=== PATIENT | female | born 1970 | race Caucasian/White ===

== ENCOUNTER 2019-11-08 08:48 | Day surgery (SDC) | payer OTHER ==
[~2019-11-08] VITALS: Ht 172.7 cm; Wt 82.8 kg
[~2019-11-08 08:48] MED LIST: CHLO25B PO; HYDCHL12.5 PO; IBUP800 PO
--- NOTE | 2019-11-08 11:30 | NUR ---
11/08/19 2060 Layne Obregon RN UPDATED PT REGARDING THE DELAY IN HER CASE WHILE IN PRE-OP.
== END 2019-11-08 12:22 | disposition home or self-care (01) ==
LOC: ORSCSDS 08:48
PROVIDERS: Student in an Organized Health Care Education/Training Program
PROC: 0DBP8ZX Excision of Rectum, Via Natural or Artificial Opening Endoscopic, Diagnostic (ICD-10-PCS; principal; 2019-11-08 10:15)
PROC: 0DBM8ZX Excision of Descending Colon, Via Natural or Artificial Opening Endoscopic, Diagnostic (ICD-10-PCS; principal; 2019-11-08 10:15)
DX: K92.1 Melena (principal); D12.5 Benign neoplasm of sigmoid colon; K63.5 Polyp of colon; K64.8 Other hemorrhoids; K64.4 Residual hemorrhoidal skin tags; I10 Essential (primary) hypertension; E78.5 Hyperlipidemia, unspecified
CPT/HCPCS: 88305; J2704; J7120

== ENCOUNTER → 2020-10-13 | Outpatient (CLI) | payer OTHER ==
[2020-10-17 15:10] LABS: HPV 16 Negative (Negative); HPV 18 Negative (Negative); HPV OTHER HR TYPES Negative (Negative)
== END | disposition home or self-care (01) ==
LOC: LAB 14:13
PROVIDERS: Family Medicine
DX: Z01.419 Encounter for gynecological examination (general) (routine) without abnormal findings (principal)
CPT/HCPCS: 87624; G0145

== ENCOUNTER 2023-08-14 06:46 | Day surgery (SDC) | payer BC ==
[2023-08-12 11:44] LABS: BASOPHILS ABSOLUTE AUTO 0.03 K/mm3 (0.00-0.23); BASOPHILS PERCENT AUTO 1 % (0-2); EOSINOPHILS ABSOLUTE AUTO 0.08 K/mm3 (0.00-0.68); EOSINOPHILS PERCENT AUTO 2 % (0-6); Hematocrit 45.3 % (33.0-51.0); Hemoglobin 15.1 g/dL (11.5-16.0); IMMATURE GRAN ABSOLUTE AUTO 0.01 K/mm3 (0.00-0.10); IMMATURE GRAN PERCENT AUTO 0 % (0-1); LYMPHOCYTES ABSOLUTE AUTO 1.47 K/mm3 (0.84-5.20); LYMPHOCYTES PERCENT AUTO 35 % (21-46); MONOCYTES ABSOLUTE AUTO 0.28 K/mm3 (0.16-1.47); MONOCYTES PERCENT AUTO 7 % (4-13); Mean Corpuscular HGB 29.2 pg (26.0-34.0); Mean Corpuscular HGB Conc 33.3 g/dL (31.5-36.5); Mean Corpuscular Volume 88 fL (80-100); Mean Platelet Volume 11.6 fL (9.1-12.4); NEUTROPHILS ABSOLUTE AUTO 2.36 K/mm3 (1.96-9.15); NEUTROPHILS PERCENT AUTO 56 % (41-73); Platelet Count 231 K/mm3 (150-400); RDW Coefficient Variation 13.3 % (11.7-14.2); RDW Standard Deviation 42.4 fL (35.1-46.3); Red Blood Cell Count 5.17 M/mm3 (3.80-5.20); White Blood Cell Count 4.23 K/mm3 (4.00-11.30)
[2023-08-12 12:20] LABS: Bun/Creatinine Ratio 18.2 (12.0-20.0); Calcium, Blood 9.1 mg/dL (8.5-10.1); Creatinine, Blood 0.82 mg/dL (0.40-1.00); Potassium, Blood 3.7 mmol/L (3.5-5.5)
[2023-08-14] VITALS (26 sets, daily range): BP systolic 87–150; BP diastolic 64–94
[~2023-08-14] VITALS: Ht 167.6 cm; Wt 81.9 kg
--- NOTE | 2023-08-14 12:56 | NUR ---
PATIENT TO ROOM FROM PACU, CRACKERS GIVEN 2 PERCOCET GIVEN 4 SMALL INCISIONS ALL WNL, LUNGS CLEAR O2 OFF BIOX 98% SCANT VAGINAL BLEEDING
[2023-08-15 00:09] VITALS: BP 101/61
[2023-08-15 05:36] VITALS: BP 105/64
[2023-08-15 05:54] LABS: BASOPHILS ABSOLUTE AUTO 0.02 K/mm3 (0.00-0.23); BASOPHILS PERCENT AUTO 0 % (0-2); EOSINOPHILS ABSOLUTE AUTO 0.04 K/mm3 (0.00-0.68); EOSINOPHILS PERCENT AUTO 0 % (0-6); Hematocrit 38.9 % (33.0-51.0); Hemoglobin 13.1 g/dL (11.5-16.0); IMMATURE GRAN ABSOLUTE AUTO 0.03 K/mm3 (0.00-0.10); IMMATURE GRAN PERCENT AUTO 0 % (0-1); LYMPHOCYTES ABSOLUTE AUTO 1.67 K/mm3 (0.84-5.20); LYMPHOCYTES PERCENT AUTO 19 % (21-46); MONOCYTES PERCENT AUTO 7 % (4-13); Mean Corpuscular HGB 29.2 pg (26.0-34.0); Mean Corpuscular HGB Conc 33.7 g/dL (31.5-36.5); Mean Corpuscular Volume 87 fL (80-100); Mean Platelet Volume 11.3 fL (9.1-12.4); NEUTROPHILS ABSOLUTE AUTO 6.66 K/mm3 (1.96-9.15); NEUTROPHILS PERCENT AUTO 74 % (41-73); Platelet Count 185 K/mm3 (150-400); RDW Coefficient Variation 13.3 % (11.7-14.2); RDW Standard Deviation 41.9 fL (35.1-46.3); Red Blood Cell Count 4.49 M/mm3 (3.80-5.20); White Blood Cell Count 9.02 K/mm3 (4.00-11.30)
[2023-08-15 08:36] VITALS: BP 105/64
--- NOTE | 2023-08-15 10:33 | NUR ---
pt preparing to go home after lunch, reports will take a shower here before she goes home, pt reports has scripts at home already, rosemary and jazmyne
[2023-08-15] MEDS ORDERED: Percocet 5-3251 EACH PO (10:36)
[2023-08-15] MEDS ORDERED: ESTR2 PO (10:36)
[2023-08-15] MEDS ORDERED: IBUP800 PO (10:37)
[2023-08-15 12:55] VITALS: BP 125/83
--- NOTE | 2023-08-15 13:00 | NUR ---
dc home with dc instructions and , encouraged to call dr healy with questions day or night. if unable to reach to call hospital. script for estrace given for pt to fill. pt choose to ambulate out.
== END 2023-08-15 13:00 | disposition home or self-care (01) ==
LOC: ORSCMMR 06:46 → ORD 08:00 → ORSCMMR 08:00 → BC 12:34 → ORSCMMR 08-15 13:00
PROVIDERS: Obstetrics & Gynecology
PROC: 0UT7FZZ Resection of Bilateral Fallopian Tubes, Via Natural or Artificial Opening With Percutaneous Endoscopic Assistance (ICD-10-PCS; principal; 2023-08-14 08:00)
PROC: 0UT9FZZ Resection of Uterus, Via Natural or Artificial Opening With Percutaneous Endoscopic Assistance (ICD-10-PCS; principal; 2023-08-14 08:00)
PROC: 0UT2FZZ Resection of Bilateral Ovaries, Via Natural or Artificial Opening With Percutaneous Endoscopic Assistance (ICD-10-PCS; principal; 2023-08-14 08:00)
PROC: 0U5F4ZZ Destruction of Cul-de-sac, Percutaneous Endoscopic Approach (ICD-10-PCS; principal; 2023-08-14 08:00)
DX: N95.0 Postmenopausal bleeding (principal); N85.01 Benign endometrial hyperplasia; D25.9 Leiomyoma of uterus, unspecified; N80.03 Adenomyosis of the uterus; N80.329 Endometriosis of the posterior cul-de-sac, unspecified depth; Z79.899 Other long term (current) drug therapy
CPT/HCPCS: 36415; 80048; 85025; 86850; 86900; 86901; 88305; 88307; A9270; J0690; J1100; J1885; J2250; J2371; J2405; J2704; J3010; J7120

== ENCOUNTER → 2025-03-10 | Outpatient (CLI) | payer BC ==
[~2025-03-10] MED LIST changes: +ESTR2 PO; +HYDCHL25 PO; +LYLLANA; +Percocet 5-3251 EACH PO
[2025-03-10 16:25] LABS: BASOPHILS ABSOLUTE AUTO 0.03 K/mm3 (0.00-0.23); BASOPHILS PERCENT AUTO 1 % (0-2); EOSINOPHILS ABSOLUTE AUTO 0.06 K/mm3 (0.00-0.68); EOSINOPHILS PERCENT AUTO 1 % (0-6); Hematocrit 48.1 % (33.0-51.0); Hemoglobin 16.1 g/dL (11.5-16.0); IMMATURE GRAN ABSOLUTE AUTO 0.01 K/mm3 (0.00-0.10); IMMATURE GRAN PERCENT AUTO 0 % (0-1); LYMPHOCYTES ABSOLUTE AUTO 0.63 K/mm3 (0.84-5.20); LYMPHOCYTES PERCENT AUTO 12 % (21-46); MONOCYTES ABSOLUTE AUTO 0.58 K/mm3 (0.16-1.47); MONOCYTES PERCENT AUTO 11 % (4-13); Mean Corpuscular HGB 29.2 pg (26.0-34.0); Mean Corpuscular HGB Conc 33.5 g/dL (31.5-36.5); Mean Corpuscular Volume 87 fL (80-100); Mean Platelet Volume 10.7 fL (9.1-12.4); NEUTROPHILS ABSOLUTE AUTO 3.92 K/mm3 (1.96-9.15); NEUTROPHILS PERCENT AUTO 75 % (41-73); Platelet Count 180 K/mm3 (150-400); RDW Coefficient Variation 13.1 % (11.7-14.2); RDW Standard Deviation 41.2 fL (35.1-46.3); Red Blood Cell Count 5.52 M/mm3 (3.80-5.20); White Blood Cell Count 5.23 K/mm3 (4.00-11.30)
[2025-03-10 16:47] LABS: Albumin, Blood 3.8 g/dL (3.4-5.0); Albumin/Globulin Ratio 0.9 (0.8-1.8); Bilirubin, Total 0.7 mg/dL (0.1-1.0); Bun/Creatinine Ratio 10.5 (12.0-20.0); Calcium, Blood 9.4 mg/dL (8.5-10.1); Creatinine, Blood 0.86 mg/dL (0.40-1.00); Globulin, Blood 4.2 g/dL (2.2-4.0); Potassium, Blood 3.4 mmol/L (3.5-5.5)
== END ==
LOC: LAB SHORT 16:21 → LAB 16:21
DX: R10.9 Unspecified abdominal pain (principal)
CPT/HCPCS: 80053; 83690; 85025

== ENCOUNTER 2025-03-17 11:44 | Observation (INO) | payer BC, OTHER ==
[~2025-03-17] VITALS: Ht 170.2 cm; Wt 84.5 kg
[~2025-03-17 11:44] MED LIST changes: -LYLLANA; +LYLLANA TOP
[2025-03-17 12:51] LABS: BASOPHILS ABSOLUTE AUTO 0.04 K/mm3 (0.00-0.23); BASOPHILS PERCENT AUTO 1 % (0-2); EOSINOPHILS ABSOLUTE AUTO 0.06 K/mm3 (0.00-0.68); EOSINOPHILS PERCENT AUTO 1 % (0-6); Hematocrit 46.8 % (33.0-51.0); Hemoglobin 15.8 g/dL (11.5-16.0); IMMATURE GRAN ABSOLUTE AUTO 0.03 K/mm3 (0.00-0.10); IMMATURE GRAN PERCENT AUTO 0 % (0-1); LYMPHOCYTES ABSOLUTE AUTO 1.33 K/mm3 (0.84-5.20); LYMPHOCYTES PERCENT AUTO 16 % (21-46); MONOCYTES ABSOLUTE AUTO 0.57 K/mm3 (0.16-1.47); MONOCYTES PERCENT AUTO 7 % (4-13); Mean Corpuscular HGB 29.6 pg (26.0-34.0); Mean Corpuscular HGB Conc 33.8 g/dL (31.5-36.5); Mean Corpuscular Volume 88 fL (80-100); Mean Platelet Volume 11.1 fL (9.1-12.4); NEUTROPHILS ABSOLUTE AUTO 6.49 K/mm3 (1.96-9.15); NEUTROPHILS PERCENT AUTO 76 % (41-73); Platelet Count 193 K/mm3 (150-400); RDW Coefficient Variation 12.4 % (11.7-14.2); RDW Standard Deviation 40.1 fL (35.1-46.3); Red Blood Cell Count 5.33 M/mm3 (3.80-5.20); White Blood Cell Count 8.52 K/mm3 (4.00-11.30)
[2025-03-17 13:22] LABS: Albumin, Blood 3.6 g/dL (3.4-5.0); Bilirubin, Total 1.2 mg/dL (0.1-1.0); Bun/Creatinine Ratio 15.5 (12.0-20.0); Calcium, Blood 9.7 mg/dL (8.5-10.1); Creatinine, Blood 0.78 mg/dL (0.40-1.00); Globulin, Blood 3.7 g/dL (2.2-4.0); Potassium, Blood 3.6 mmol/L (3.5-5.5); Total Protein, Blood 7.3 g/dL (6.4-8.2)
[2025-03-17] MEDS ORDERED: Ketorolac Tromethamine 15mg Vial IV ONE (13:45)
[2025-03-17] MEDS ORDERED: MetroNIDAZOLE 500MG/NS 100 ml 100 ML IV ONE (14:45)
[2025-03-17] MEDS ORDERED: Lactated Ringer's 1,000 ML IV SCH ×2 (14:45→14:50)
[2025-03-17] MEDS ORDERED: Acetaminophen 325 MG TABLET PO PRN (14:50)
[2025-03-17] MEDS ORDERED: HYDROmorphone HCl/Pf 1MG SYR IV PRN (14:50)
[2025-03-17] MEDS ORDERED: Ondansetron HCl 2 MG / ML 2ML Vial IV PRN (14:50)
[2025-03-17] MEDS ORDERED: OxyCODONE HCL 5 MG TAB PO PRN (14:50)
[2025-03-17] MEDS ORDERED: Ketorolac Tromethamine 15mg Vial IV PRN (14:55)
[2025-03-17] MEDS ORDERED: METO100ER PO (16:26)
[2025-03-17 16:30] VITALS: BP 121/83
--- NOTE | 2025-03-17 16:41 | NUR ---
PATIENT ADMITTED TO ROOM 215, REPORT RECEIVED FROM KATHRYN STUDENT NURSE. PATIENT ORIENTED TO ROOM AND USE OF CALL LIGHT. REPORT GIVEN TO BONNIE CARLSON TO CONTINUE ADMISSION PROCESS.
[2025-03-17 20:15] VITALS: BP 128/79
[2025-03-17] MEDS ORDERED: Metoprolol Succinate 50 MG TABCR PO SCH (21:00)
[2025-03-18] VITALS (18 sets, daily range): BP systolic 85–170; BP diastolic 59–108
--- NOTE | 2025-03-18 04:50 | NUR ---
SHIFT SUMMARY CRISTINA WAS ALERT AND FULLY ORIENTED AND INDEPENDENT IN ROOM ON ASSESSMENT. PT PAIN WELL MANAGED, DENIES N/V AT THIS TIME. PT WAS HYPOTENSIVE WITH AM VITALS, WILL FOLLOW UP. NO ACUTE EVENTS TONIGHT OR OTHER NOTED CHANGES TO PT CONDITION. PT SCHEDULED TO HAVE IMAGING IN AM AND PROBABLE SURGERY.
[2025-03-18 05:24] LABS: Hematocrit 42.6 % (33.0-51.0); Hemoglobin 14.3 g/dL (11.5-16.0); Mean Corpuscular HGB 29.1 pg (26.0-34.0); Mean Corpuscular HGB Conc 33.6 g/dL (31.5-36.5); Mean Corpuscular Volume 87 fL (80-100); Mean Platelet Volume 11.5 fL (9.1-12.4); Platelet Count 197 K/mm3 (150-400); RDW Coefficient Variation 12.6 % (11.7-14.2); RDW Standard Deviation 39.8 fL (35.1-46.3); Red Blood Cell Count 4.92 M/mm3 (3.80-5.20); White Blood Cell Count 5.37 K/mm3 (4.00-11.30)
[2025-03-18 05:56] LABS: Albumin, Blood 3.2 g/dL (3.4-5.0); Bilirubin, Total 1.3 mg/dL (0.1-1.0); Bun/Creatinine Ratio 9.5 (12.0-20.0); Calcium, Blood 8.9 mg/dL (8.5-10.1); Creatinine, Blood 0.84 mg/dL (0.40-1.00); Globulin, Blood 3.2 g/dL (2.2-4.0); Potassium, Blood 3.7 mmol/L (3.5-5.5); Total Protein, Blood 6.4 g/dL (6.4-8.2)
[2025-03-18] MEDS ORDERED: HydroCHLOROthiazide 25 mg Tab PO SCH (09:00)
[2025-03-18] MEDS ORDERED: Lactated Ringer's 1,000 ML IV SCH (10:45)
[2025-03-18] MEDS ORDERED: Indocyanine Green 25 MG Vial IV ONE (10:45)
[2025-03-18] MEDS ORDERED: FentaNYL Citrate 50 MCG/ML 5 ML Injection ONE (11:30)
[2025-03-18] MEDS ORDERED: Ondansetron HCl 2 MG / ML 2ML Vial ONE (11:30)
[2025-03-18] MEDS ORDERED: Rocuronium Bromide 10 MG/ML 5ML Injection IV ONE (11:30)
[2025-03-18] MEDS ORDERED: propofoL 20 ML IV ONE (11:30)
[2025-03-18] MEDS ORDERED: Dexamethasone Sod Phos 10 MG/ML 1ML VIAL ONE (11:30)
[2025-03-18] MEDS ORDERED: Ketorolac Tromethamine 30mg Vial ONE (11:30)
--- NOTE | 2025-03-18 12:39 | NUR ---
PT TAKEN TO SURGERY. PT'S MOTHER AT BEDSIDE.
--- NOTE | 2025-03-18 13:23 | NUR ---
History, Chart, Medications and Allergies reviewed before start of procedure. Lungs clear T/O to Auscultation. Patient confirms NPO status and agrees with scheduled surgery. Pre-Op teaching done. Pt verbalizes understanding.
[2025-03-18] MEDS ORDERED: Bupivacaine 0.5% HCl 5 MG/ML 30MLVIAL ONE (13:33)
[2025-03-18] MEDS ORDERED: Bupivacaine 0.25% Epi 1:200000 30 ML Vial ONE (14:07)
[2025-03-18] MEDS ORDERED: Sugammadex Sodium 200 MG/2ML SDV (100 MG/ML) ONE (15:02)
[2025-03-18] MEDS ORDERED: Labetalol HCL 5 MG/ML 4ML Injection (Single Dose) IV PRN (15:25)
[2025-03-18] MEDS ORDERED: FentaNYL Citrate 50 MCG/ML 2 ML Injection IV PRN (15:30)
[2025-03-18] MEDS ORDERED: HydrALAZINE HCl 20 MG / ML 1ML Vial IV PRN (15:30)
[2025-03-18] MEDS ORDERED: Atropine Sulfate 0.1 MG/ML 10ML SYR IV PRN (15:30)
[2025-03-18] MEDS ORDERED: Droperidol 5 mg/2 ml Vial IV PRN (15:30)
[2025-03-18] MEDS ORDERED: Metoclopramide HCl 5MG / ML 2ML Vial IV PRN (15:30)
[2025-03-18] MEDS ORDERED: FentaNYL Citrate 50 MCG/ML 2 ML Injection ONE (15:32)
[2025-03-18] MEDS ORDERED: HYDROmorphone HCl/Pf 1MG SYR IV PRN ×2 (15:35)
[2025-03-18] MEDS ORDERED: Ondansetron HCl 2 MG / ML 2ML Vial IV PRN (15:35)
[2025-03-18] MEDS ORDERED: Ketorolac Tromethamine 15mg Vial IV PRN (15:35)
[2025-03-18] MEDS ORDERED: Albuterol 2.5 MG/3 ML VIAL INH PRN (15:35)
--- NOTE | 2025-03-18 16:00 | NUR ---
PT BACK TO ROOM FROM PACU. ON RA, SATS >95%. INCISION SITES WNL. PT'S AT BEDSIDE.
--- NOTE | 2025-03-18 16:48 | NUR ---
SHIFT SUMMARY PT IS A/OX4. CARLOTTA CORTÉS COMPLETED THIS AFTERNOON. DISCHARGE ORDERS IN. PT WISHES TO STAY THE NIGHT FOR OBSERVATION AND PAIN MANAGEMENT. PT IS ON RA, SATS >95%. VSS. RECIEVING PAIN MEDS PER MAR. PT TOLERATING REG DIET AT THIS TIME AND REPORTS NO NAUSEA. AT BEDSIDE. POST-OP VITAL INITIATED.
[2025-03-19 00:32] VITALS: BP 108/65
[2025-03-19 03:59] VITALS: BP 108/69
--- NOTE | 2025-03-19 04:32 | NUR ---
SHIFT SUMMARY MARGUERITE WAS ALERT AND FULLY ORIENTED ON ASSESSMENT. PT PAIN WAS CHALLENGING TO BRING UNDER CONTROL BUT IS MODERATELY WELL MANAGED AT THIS TIME. LAP SITES C/D/I, BT PRESENT, PT AMBULATING WELL W/O ASSISTANCE AT THIS TIME AND VOIDING APPROPRIATELY. NO NEW COMPLAINTS TONIGHT, NO ACUTE EVENTS NO NOTED CHANGES TO PT CONDITION.
[2025-03-19 07:05] VITALS: BP 113/70
[2025-03-19] MEDS ORDERED: OXAYDO5 M1 PO (14:40)
[2025-03-19 14:51] VITALS: BP 117/78
--- NOTE | 2025-03-19 14:51 | NUR ---
discharging DR VILLALPANDO IN TO SEE PT. REVIEWED DC INSTRUCTIONS W/PT; VERBALIZED UNDERSTANDING. PT STATE RIDE IS ON WAY.
--- NOTE | 2025-03-19 15:14 | NUR ---
DISCHARGED PT LEFT UNIT IN WC W/POSSESSIONS AND DC PAPERWORK IN HAND, ACCOMPANIED BY SPOUSE.
== END 2025-03-19 15:11 | disposition home or self-care (01) ==
LOC: ER 11:44 → ERHOLD 11:45 → SURS 11:45 → ERHOLD 11:45 → SURS 16:23
PROVIDERS: Student in an Organized Health Care Education/Training Program; ADMIT Surgery
PROC: 0FT44ZZ Resection of Gallbladder, Percutaneous Endoscopic Approach (ICD-10-PCS; principal; 2025-03-18 13:00)
PROC: 3E0T3BZ Introduction of Anesthetic Agent into Peripheral Nerves and Plexi, Percutaneous Approach (ICD-10-PCS; principal; 2025-03-18 13:00)
DX: K80.00 Calculus of gallbladder with acute cholecystitis without obstruction (principal); I10 Essential (primary) hypertension; Z91.040 Latex allergy status; Z88.8 Allergy status to other drugs, medicaments and biological substances
CPT/HCPCS: 36415; 74181; 76705; 80053; 83690; 85025; 85027; 88304; 93005; 93010; 96365; 96375; 99285-25; A9270; G0378; J1100; J1171; J1885; J2405; J2704; J3010; J7120